=== PATIENT | female | born 1975 | race Caucasian/White ===

== ENCOUNTER 2025-05-28 11:54 | Emergency (ER) | payer OTHER ==
[~2025-05-28] VITALS: Ht 160 cm; Wt 63.5 kg
[2025-05-28] MEDS ORDERED: Ketorolac Tromethamine 30mg Vial IM ONE (13:05)
[2025-05-28] MEDS ORDERED: Methyl Salicylate/Menth/Camph 57 GM TUBE TOP ONE (13:05)
[2025-05-28] MEDS ORDERED: Robaxin750 MG PO (14:22)
== END 2025-05-28 14:35 | disposition home or self-care (01) ==
LOC: ER 11:54
DX: S16.1XXA Strain of muscle, fascia and tendon at neck level, initial encounter (principal); S00.03XA Contusion of scalp, initial encounter; F41.9 Anxiety disorder, unspecified; Z88.0 Allergy status to penicillin; Z88.2 Allergy status to sulfonamides; F43.10 Post-traumatic stress disorder, unspecified; V47.6XXA Car passenger injured in collision with fixed or stationary object in traffic accident, initial encounter
CPT/HCPCS: 70450; 72040; 96372; 99284-25; A9270; J1885